=== PATIENT | female | born 1975 | race Caucasian/White ===

== ENCOUNTER 2016-11-10 19:30 | Emergency (ER) | payer OTHER ==
[2016-11-10 21:54] LABS: HEMOGLOBIN 14.2 gm/dl (12.3-15.3); RED BLOOD COUNT 4.9 M/UL (4.00-5.10); WHITE BLOOD COUNT 10.3 K/UL (4.5-11.0)
[2016-11-10 22:19] LABS: BUN/CREATININE RATIO 12 (0-10)
== END 2016-11-11 11:02 | disposition home or self-care (01) ==
LOC: ER1 19:30
PROVIDERS: Family Medicine
DX: R07.81 Pleurodynia (principal); I10 Essential (primary) hypertension; F17.200 Nicotine dependence, unspecified, uncomplicated
CPT/HCPCS: 36415; 71010; 80053; 81001; 82550; 82553; 83874; 84484; 84703; 85025; 85379; 85610; 85730; 87086; 93005; 96372; 99285; J1650; Q9963